=== PATIENT | male | born 1945 | race Caucasian/White ===

== ENCOUNTER 2018-07-17 09:27 | Emergency (ER) | payer MEDICARE, BC ==
[~2018-07-17] VITALS: Ht 182.9 cm; Wt 85.0 kg
[~2018-07-17 09:27] MED LIST: AMLODIPINE BESYL5 MG PO; AMOXICILLIN/CL500 MG PO; ANTIVERT PO; CIALIS20 MG PO; CYANOCOBALAM1000 MCG IM; FLULAVAL IM; GLYBURIDE5 MG PO; JANUMET1 TAB PO; LIPITOR40 MG PO; LOTREL1 CA1 PO; METFORMIN1000 MG PO; ONE TOUCH ULTRA 100 XX; TRICOR145 MG PO
[2018-07-17] MEDS ORDERED: LISINOPRIL10 MG PO (09:46)
[2018-07-17] MEDS ORDERED: PLAVIX75 MG PO (09:47)
[2018-07-17] MEDS ORDERED: LEVEMIR100 UNIT/M SC (09:47)
[2018-07-17 10:53] VITALS: BP 178/88
== END 2018-07-17 10:53 | disposition home or self-care (01) ==
LOC: ED 09:27
DX: T60.3X1A Toxic effect of herbicides and fungicides, accidental (unintentional), initial encounter (principal); I10 Essential (primary) hypertension; E11.9 Type 2 diabetes mellitus without complications; I25.10 Atherosclerotic heart disease of native coronary artery without angina pectoris; Z95.5 Presence of coronary angioplasty implant and graft

== ENCOUNTER 2018-12-18 19:10 | Emergency (ER) | payer MEDICARE, BC ==
[~2018-12-18] VITALS: Ht 182.9 cm; Wt 81.0 kg
[~2018-12-18 19:10] MED LIST changes: +LEVEMIR100 UNIT/M SC; +LISINOPRIL10 MG PO; +PLAVIX75 MG PO
[2018-12-18] MEDS ORDERED: SIMVASTATIN40 MG PO (19:34)
[2018-12-18] MEDS ORDERED: FENOFIBRATE145 MG PO (19:35)
[2018-12-18] MEDS ORDERED: GENTAMICIN SULF5 ML OD (19:46)
[2018-12-18 19:50] VITALS: BP 150/76
== END 2018-12-18 19:58 | disposition home or self-care (01) ==
LOC: ED 19:10
DX: S05.02XA Injury of conjunctiva and corneal abrasion without foreign body, left eye, initial encounter (principal); H57.11 Ocular pain, right eye; X58.XXXA Exposure to other specified factors, initial encounter; Y93.H9 Activity, other involving exterior property and land maintenance, building and construction; Y92.007 Garden or yard of unspecified non-institutional (private) residence as the place of occurrence of the external cause

== ENCOUNTER 2020-04-11 12:29 | Emergency (ER) | payer MEDICARE, BC ==
[~2020-04-11] VITALS: Ht 182.9 cm; Wt 80.0 kg
[~2020-04-11 12:29] MED LIST changes: +FENOFIBRATE145 MG PO; +GENTAMICIN SULF5 ML OD; +SIMVASTATIN40 MG PO
[2020-04-11] MEDS ORDERED: LISINOPRIL20 M1 PO (13:10)
[2020-04-11] MEDS ORDERED: ROSUVASTATIN CA10 MG PO (13:10)
[2020-04-11] MEDS ORDERED: JARDIANCE10 MG PO (13:11)
[2020-04-11] MEDS ORDERED: TRESIBA FL100 UNIT/M SC (13:13)
[2020-04-11] MEDS ORDERED: ERYTHROMYCIN O3.5 GM OS (13:21)
[2020-04-11 13:27] VITALS: BP 171/77
== END 2020-04-11 13:27 | disposition home or self-care (01) ==
LOC: ED 12:29
DX: T15.02XA Foreign body in cornea, left eye, initial encounter (principal); E11.9 Type 2 diabetes mellitus without complications; I10 Essential (primary) hypertension; I25.10 Atherosclerotic heart disease of native coronary artery without angina pectoris; X58.XXXA Exposure to other specified factors, initial encounter; Y93.89 Activity, other specified; Y92.009 Unspecified place in unspecified non-institutional (private) residence as the place of occurrence of the external cause; Z79.4 Long term (current) use of insulin; Z95.5 Presence of coronary angioplasty implant and graft

== ENCOUNTER 2020-06-30 17:21 | Emergency (ER) | payer MEDICARE, BC ==
[~2020-06-30] VITALS: Ht 182.9 cm; Wt 85.0 kg
[~2020-06-30 17:21] MED LIST changes: +ERYTHROMYCIN O3.5 GM OS; +JARDIANCE10 MG PO; +LISINOPRIL20 M1 PO; +ROSUVASTATIN CA10 MG PO; +TRESIBA FL100 UNIT/M SC
[2020-06-30 19:41] LABS: HEMATOCRIT 44.2 % (39.0-50.0); HEMOGLOBIN 14.3 g/dl (14.0-18.0); IMMATURE GRANULOCYTES 0.4 % (0.0-5.0); MEAN CELL VOLUME 88.6 fL CALC (80.0-100.0); MEAN CORPUSCULAR HGB 28.7 pG CALC (26.0-32.0); MEAN CORPUSCULAR HGB CONC 32.4 g/dL CAL (32.0-36.0); NEUT# 5.21 thou/uL (1.82-7.42); RED BLOOD COUNT 4.99 mill/uL (4.70-6.10); RED CELL DISTRI WIDTH 14.9 % (11.5-15.5)
[2020-06-30 19:41] LABS: URINE BILIRUBIN - DIPSTICK NEGATIVE (NEGATIVE); URINE BLOOD DIPSTICK NEGATIVE (NEGATIVE); URINE COLOR YELLOW; URINE GLUCOSE - DIPSTICK >=1000 mg/dL (NEGATIVE); URINE KETONE NEGATIVE (NEGATIVE); URINE LEUK ESTERASE NEGATIVE (NEGATIVE); URINE NITRITE - DIPSTICK NEGATIVE (Negative); URINE PH 5.5 (4.5-8.0); URINE PROTEIN - DIPSTICK TRACE mg/dL (NEG-TRACE); URINE SPECIFIC GRAVITY 1.025; URINE UROBILINOGEN - DIPSTICK 0.2 E.U./dL (0.2)
[2020-06-30 19:55] LABS: ALBUMIN 4.5 g/dL (3.2-5.0); ALKALINE PHOSPHATASE 138 u/l (38-126); ANION GAP 17 (6-22 (CALC)); BILIRUBIN, TOTAL 0.6 mg/dL (0.0-1.4); BUN 31 mg/dL (8-23); BUN/CREATININE RATIO 27 (12-20 (CALC)); CARBON DIOXIDE 25 mmol/l (22-30); CHLORIDE 100 mmol/l (95-108); CREATININE 1.2 mg/dL (0.7-1.3); GFR 59 ML/MIN (>=60 (CALC)); GFR FOR AFR.AMER. > 60 ML/MIN (>=60 (CALC)); POTASSIUM 4.1 mmol/l (3.5-5.1); SGOT/AST 26 u/l (19-48); SODIUM 138 mmol/l (137-146); TOTAL PROTEIN 7.6 g/dL (6.3-8.2)
[2020-06-30] MEDS ORDERED: LOTRISONE CREAM15 G1 EX (20:01)
[2020-06-30 20:15] VITALS: BP 130/80
== END 2020-06-30 20:15 | disposition home or self-care (01) ==
LOC: ED 17:21
PROVIDERS: Family Medicine
DX: N48.1 Balanitis (principal); N47.1 Phimosis; E11.9 Type 2 diabetes mellitus without complications; I10 Essential (primary) hypertension; I25.10 Atherosclerotic heart disease of native coronary artery without angina pectoris; Z95.5 Presence of coronary angioplasty implant and graft; Z79.4 Long term (current) use of insulin